=== PATIENT | female | born 1985 | race African-American/Black ===

== ENCOUNTER → 2017-06-11 | Outpatient (CLI) | payer MEDICAID ==
[2015-05-09 10:57] VITALS: BP 133/89
--- NOTE | 2017-06-11 10:04 | RAD ---
Examination: X-rays of the left knee. Clinical history: Chronic bilateral knee pain, no trauma. Technique: Two views of the left knee were obtained. Comparison: None available. Findings: No acute fracture, dislocation, or destructive bony lesion is noted. Small osteophytes are noted in the lateral and patellofemoral compartments of the knee, consistent wi th osteoarthritic changes. No joint effusion or soft tissue abnormality is noted. Impression: 1. No acute fracture or dislocation. 2. Arthropathy, as described above. Reported By:
--- NOTE | 2017-06-11 10:08 | RAD ---
Examination: X-rays of the right knee. Clinical history: Chronic bilateral knee pain, no trauma. Technique: Two views of the right knee were obtained. Comparison: 05/01/2015. Findings: No acute fracture, dislocation, or destructive bony lesion is noted. No arthropathy is appreciated. Bony spurring is seen at the anterosuperior aspect of the patella, consistent with enthesopathy. No soft tissue abnormality is noted. Impression: 1. No acute fracture or dislocation. Reported By:
== END ==
LOC: RAD 09:27
PROVIDERS: ATTEND Internal Medicine
DX: M17.11 Unilateral primary osteoarthritis, right knee (principal)
CPT/HCPCS: 73560

== ENCOUNTER → 2017-06-20 | Outpatient (CLI) | payer MEDICAID ==
[2015-05-09 10:57] VITALS: BP 133/89
--- NOTE | 2017-06-20 11:00 | CT ---
HISTORY: Chronic low back pain Study: CT lumbar spine without contrast Comparison: None Technique: Axial noncontrast images with coronal and sagittal reformats. Dose reduction procedures we re used with mA/kv adjusted for body size. Resolution is limited due to the patient's body habitus. Findings: The alignment is normal. The vertebral bodies are of average height. The disc heights are preserved. The pedicles, spinous processes, and posterior elements are intact. The sacrum and SI joints are norm al. There is no definite evidence for compressive disc disease at any level however it should be note d that due to the decreased resolution caused by the patient's body habitus a subtle disc abnormality might not be detectable. If disc disease is suspected MRI is recommended for further evaluation. The joints are normal. IMPRESSION: No significant abnormality identified within the limitations noted above. If lumbar disc disease is a clinical consideration MRI should be considered for further evaluation. Reported By:
== END ==
LOC: RAD 10:27
PROVIDERS: ATTEND Nurse Practitioner Family
DX: M51.36 Other intervertebral disc degeneration, lumbar region (principal)
CPT/HCPCS: 72131

== ENCOUNTER 2018-01-07 13:32 | Observation (INO) ==
--- NOTE | 2018-01-07 13:59 | ED.ABDFE ---
HPI Time Seen Time Seen by Provider: 01/07/18 13:52 PCP Primary Care Physician: dar terrell Complaint Doctors Chief Complaint Comments: Patient presents with complaint of stomach pain due to her gallbladder which was diagnosed 01/04/18 (cholelithiasis w/o cholecystitis) She admits to vomiting four days ago.. Chief Complaint:: pt has been in the er several times for abd pain and has been dx with gallstones. dr nunez was going to admit 3 days ago and pt refused. patient stated she had to have some relief from her pain today. Source History Provided: Patient and Parent Mode of arrival Mode of Arrival: Ambulatory Timing Onset of Chief Complaint: 01/02/18 PMH PMH Past Medical History: Yes Past Medical History: Arthritis, Diabetes and Hypertension Past Surgical History: Yes Surgical History: Family History History of Family Medical Conditions: Yes Family Medical History: Diabetes Mellitus, Cancer and Hypertension Social History Does patient currently use any type of tobacco product: No Have you used tobacco products in the last 12 months: No Type of Tobacco Use: None Does any household member use tobacco: No Alcohol Use: None Do you use any recreational Drugs:: No Lives With: Family Lives Where: Home infectious screening In the last 2 months have you had wt loss of >10#?: NO Have you had fever, night sweats or hemotysis?: No Have you traveled outside the country in the last 6 months?: No Isolation: Standard PE Vital Signs Vitals: Temperature 98.4 F Pulse Rate [Left Radial] 96 Pulse Rate 99 Respiratory Rate 24 Blood Pressure [Right Arm] 115/56 Blood Pressure [Left Arm] 161/99 Blood Pressure 132/104 O2 Sat by Pulse Oximetry 97 General General Appearance: Alert and In No Apparent Distress Head Head Exam: Normal Inspection, Atraumatic and Normocephalic Eyes Eye exam: Normal Appearance, PERRL and EOMI ENT ENT Exam: Normal Exam and Normal Oropharynx Neck Neck Exam: Normal Inspection and Full ROM Chest Chest Inspection: Normal Inspection and Symmetric Chest Wall Rise Respiratory Respiratory Exam: Bilateral: Clear to Auscultation Cardiovascular Cardiovascular Exam: Regular Rate and Normal Rhythm Abdominal Exam Abdominal Exam: Normal Inspection, Normal Bowel Sounds and Soft Abdominal Tenderness: RUQ and LUQ Rectal Rectal Exam: Deferred Back Back Exam: Normal Inspection and Full ROM Extremeties Extremities Exam: Normal Inspection and Full ROM External Exam: Female: Deferred : Speculum Exam (Female): Deferred : Bimanual Exam (female): Deferred Neurologic Neurological Exam: Alert and Oriented X3 Psychiatric Psychiatric Exam: Normal Affect and Normal Mood Skin Skin Exam: Warm and Intact COURSE Consultation Called: 15:10 Consultation Comments: Dr. Richards agreed to admit for further evaluation ROR Labs Reviewed Laboratory Results Reviewed?: Yes Result Diagrams: 01/07/18 14:15 01/07/18 14:15 Laboratory: WBC 10.8 X10^3/uL (3.6-10.0) H 01/07/18 14:15 RBC 6.30 X10^6/uL (3.5-5.4) H 01/07/18 14:15 Hgb 16.3 g/dL (12.0-16.0) H 01/07/18 14:15 Hct 48.5 % (36.0-47.0) H 01/07/18 14:15 MCV 76.9 fL (80.0-100.0) L 01/07/18 14:15 MCH 25.8 pg (27.0-34.0) L 01/07/18 14:15 MCHC 33.6 g/dL (33.0-35.0) 01/07/18 14:15 RDW 15.1 % (11.6-16.5) 01/07/18 14:15 Plt Count 383 X10^3/uL (150.0-450.0) 01/07/18 14:15 Plt Count Comment Adequate (ADEQUATE) 01/07/18 14:15 MPV 7.5 fL (7.4-11.0) 01/07/18 14:15 Neut % (Auto) 76.9 % (42.0-75.0) H 01/07/18 14:15 Lymph % (Auto) 15.3 % (21.0-51.0) L 01/07/18 14:15 [place] % (Auto) 6.6 % (0.0-13.0) 01/07/18 14:15 Eos % (Auto) 0.8 % (0.9-2.9) L 01/07/18 14:15 Baso % (Auto) 0.4 % (0.2-1.0) 01/07/18 14:15 Neut # (Auto) 8.3 x10^3/uL (2.2-4.8) H 01/07/18 14:15 Lymph # (Auto) 1.6 X10^3/uL (1.3-2.9) 01/07/18 14:15 [place] # (Auto) 0.7 x10^3/uL (0.3-0.8) 01/07/18 14:15 Eos # (Auto) 0.1 x10^3/uL (0.0-0.2) 01/07/18 14:15 Baso # (Auto) 0.0 X10^3/uL (0.0-0.1) 01/07/18 14:15 Absolute Nucleated RBC 0.0 /100WBC 01/07/18 14:15 Plt Morphology Comment Normal (NORMAL) 01/07/18 14:15 RBC Morphology Abnormal (NORMAL) A 01/07/18 14:15 Hypochromasia Slight A 01/07/18 14:15 Microcytosis Slight A 01/07/18 14:15 Sodium 129 mmol/L (136-145) L 01/07/18 14:15 Corrected Sodium 133 mmol/L (136-145) L 01/07/18 14:15 Potassium 4.1 mmol/L (3.5-5.1) 01/07/18 14:15 Chloride 93 mmol/L (98-107) L 01/07/18 14:15 Carbon Dioxide 19.9 mmol/L (21-32) L 01/07/18 14:15 BUN 15 mg/dL (7-18) 01/07/18 14:15 Creatinine 0.73 mg/dL (0.55-1.02) 01/07/18 14:15 Est GFR (MDRD) Af Amer > 60 (>60) 01/07/18 14:15 Est GFR (MDRD) Non-Af > 60 (>60) 01/07/18 14:15 Glucose 283 mg/dL (65-99) H 01/07/18 14:15 POC Glucose (mg/dL) 241 mg/dL (65-99) H 01/07/18 20:31 Calcium 9.2 mg/dL (8.5-10.1) 01/07/18 14:15 Corrected Calcium TNP 01/07/18 14:15 Total Bilirubin 1.40 mg/dL (0.2-1.0) H 01/07/18 14:15 AST 38 Units/L (15-37) H 01/07/18 14:15 ALT 154 Units/L (12-78) H 01/07/18 14:15 Alkaline Phosphatase 264 Units/L (46-116) H 01/07/18 14:15 C-Reactive Protein 16.00 mg/L (0-3.0) H 01/07/18 14:15 Total Protein 8.8 g/dL (6.4-8.2) H 01/07/18 14:15 Albumin 3.5 g/dL (3.4-5.0) 01/07/18 14:15 Globulin 5.3 g/dL (2.5-4.5) H 01/07/18 14:15 Albumin/Globulin Ratio 0.7 Ratio (1.1-2.1) L 01/07/18 14:15 Specimen Type Clean catch urine 01/07/18 23:41 Urine Color Dark yellow (YELLOW) 01/07/18 23:41 Urine Appearance Slightly hazy (CLEAR) 01/07/18 23:41 Urine pH 5.0 (5.0 - 8.0) 01/07/18 23:41 Ur Specific [place] 1.025 (1.000-1.030) 01/07/18 23:41 Urine Protein 2+ (NEGATIVE) 01/07/18 23:41 Urine Glucose (UA) 4+ (NEGATIVE) 01/07/18 23:41 Urine Ketones 4+ (NEGATIVE) 01/07/18 23:41 Urine Occult Blood 1+ (NEGATIVE) 01/07/18 23:41 Urine Nitrite Negative (NEGATIVE) 01/07/18 23:41 Urine Bilirubin Negative (NEGATIVE) 01/07/18 23:41 Urine Urobilinogen Normal (NORMAL) 01/07/18 23:41 Ur Leukocyte Esterase 1+ (NEGATIVE) 01/07/18 23:41 Urine RBC 5-10 /HPF (NONE SEEN) 01/07/18 23:41 Urine WBC 0-2 /HPF (NONE SEEN) 01/07/18 23:41 Ur Squamous Epith Cells Many /HPF (NEGATIVE) 01/07/18 23:41 Urine Bacteria 2+ /HPF (NEGATIVE) 01/07/18 23:41 Hyaline Casts Moderate /LPF (NEGATIVE) 01/07/18 23:41 Urine Yeast Moderate /HPF (NEGATIVE) 01/07/18 23:41 Ur Culture Indicated? No/not indicated 01/07/18 23:41 Procedures Procedure Comments Procedures: NS at maintance Diagnosis Discharge Problem: Cholelithiasis
[2018-01-07 14:27] LABS: BASOPHILS % (AUTO) 0.4 % (0.2-1.0); EOSINOPHILS # (AUTO) 0.1 x10^3/uL (0.0-0.2); EOSINOPHILS % (AUTO) 0.8 % (0.9-2.9); HEMATOCRIT 48.5 % (36.0-47.0); HEMOGLOBIN 16.3 g/dL (12.0-16.0); LYMPHOCYTES # (AUTO) 1.6 X10^3/uL (1.3-2.9); LYMPHOCYTES % (AUTO) 15.3 % (21.0-51.0); MEAN CORPUSCULAR HEMOGLOBIN 25.8 pg (27.0-34.0); MEAN CORPUSCULAR HGB CONC 33.6 g/dL (33.0-35.0); MEAN CORPUSCULAR VOLUME 76.9 fL (80.0-100.0); MEAN PLATELET VOLUME 7.5 fL (7.4-11.0); MONOCYTES # (AUTO) 0.7 x10^3/uL (0.3-0.8); MONOCYTES % (AUTO) 6.6 % (0.0-13.0); NEUTROPHILS # (AUTO) 8.3 x10^3/uL (2.2-4.8); NEUTROPHILS % (AUTO) 76.9 % (42.0-75.0); PLATELET COUNT 383 X10^3/uL (150.0-450.0); RED CELL DISTRIBUTION WIDTH 15.1 % (11.6-16.5); WHITE BLOOD COUNT 10.8 X10^3/uL (3.6-10.0)
[2018-01-07 14:34] LABS: HYPOCHROMASIA SLIGHT; MICROCYTOSIS SLIGHT; PLATELET MORPHOLOGY COMMENT NORMAL (NORMAL)
[2018-01-07] MEDS ORDERED: CATAPRES TAB 0.1 MG PO ONE (14:49)
[2018-01-07 15:22] LABS: ALANINE AMINOTRANSFERASE 154 Units/L (12-78); ALBUMIN 3.5 g/dL (3.4-5.0); ALKALINE PHOSPHATASE 264 Units/L (46-116); ASPARTATE AMINO TRANSFERASE 38 Units/L (15-37); BLOOD UREA NITROGEN 15 mg/dL (7-18); CALCIUM 9.2 mg/dL (8.5-10.1); CARBON DIOXIDE 19.9 mmol/L (21-32); CHLORIDE 93 mmol/L (98-107); COR NA(FOR HYPERGLY) 133 mmol/L (136-145); CREATININE 0.73 mg/dL (0.55-1.02); SODIUM 129 mmol/L (136-145); TOTAL PROTEIN 8.8 g/dL (6.4-8.2); eGFR NON BLACK RACES > 60 (>60)
[2018-01-07] MEDS ORDERED: MORPHINE SULFATE INJ 4 MG IVP PRN (15:34)
[2018-01-07] MEDS ORDERED: ZOFRAN INJ 4 MG VIAL IVP PRN (16:35)
[2018-01-07] MEDS ORDERED: ZESTRIL TAB 20 MG PO SCH (16:43)
[2018-01-07] MEDS ORDERED: LEVAQUIN PREMIX IV 500 MG 500 MG/100 ML BAG IV SCH (17:00)
[2018-01-07 17:33] VITALS: BMI 51.5
[2018-01-07] MEDS ORDERED: ZESTRIL TAB 20 MG ONE (18:38)
[2018-01-07] MEDS: PROTONIX INJ 40 MG VIAL IVP SCH (18:46)
[2018-01-07] MEDS: HumuLIN R SC PRN (20:35)
[2018-01-07] MEDS ORDERED: ANCEF VIAL 500 MG IVP SCH (22:00)
[2018-01-07 23:59] LABS: BILIRUBIN,URINE NEGATIVE (NEGATIVE); BLOOD/HEMOGLOBIN,URINE 1+ (NEGATIVE); GLUCOSE, URINE 4+ (NEGATIVE); KETONES,URINE 4+ (NEGATIVE); LEUKOCYTE ESTERASE ,URINE 1+ (NEGATIVE); NITRITES,URINE NEGATIVE (NEGATIVE); PROTEIN,URINE 2+ (NEGATIVE); UROBILINOGEN,URINE NORMAL (NORMAL)
[2018-01-08 00:11] LABS: APPEARANCE,URINE SLIGHTLY HAZY (CLEAR); COLOR,URINE DARK YELLOW (YELLOW)
[2018-01-08 00:12] LABS: BACTERIA,URINE 2+ /HPF (NEGATIVE); HYALINE CASTS, URINE MODERATE /LPF (NEGATIVE); SQUAMOUS EPITHELIAL CELL,UR MANY /HPF (NEGATIVE); YEAST,URINE MODERATE /HPF (NEGATIVE)
[2018-01-08] MEDS: NS 1000 ML 1,000 ML IV SCH ×2 (01:00→15:20)
[2018-01-08] MEDS: HumuLIN R SC PRN ×3 (05:58→17:00)
[2018-01-08 06:08] LABS: BASOPHILS # (AUTO) 0.1 X10^3/uL (0.0-0.1); BASOPHILS % (AUTO) 0.7 % (0.2-1.0); EOSINOPHILS # (AUTO) 0.1 x10^3/uL (0.0-0.2); HEMATOCRIT 41.4 % (36.0-47.0); LYMPHOCYTES % (AUTO) 19.1 % (21.0-51.0); MEAN CORPUSCULAR HEMOGLOBIN 25.9 pg (27.0-34.0); MEAN CORPUSCULAR HGB CONC 33.7 g/dL (33.0-35.0); MEAN PLATELET VOLUME 7.7 fL (7.4-11.0); MONOCYTES # (AUTO) 1.1 x10^3/uL (0.3-0.8); MONOCYTES % (AUTO) 10.1 % (0.0-13.0); NEUTROPHILS # (AUTO) 7.3 x10^3/uL (2.2-4.8); NEUTROPHILS % (AUTO) 69.1 % (42.0-75.0); PLATELET COUNT 320 X10^3/uL (150.0-450.0); RED BLOOD COUNT 5.37 X10^6/uL (3.5-5.4); RED CELL DISTRIBUTION WIDTH 15.1 % (11.6-16.5); WHITE BLOOD COUNT 10.5 X10^3/uL (3.6-10.0)
[2018-01-08 06:19] LABS: ALANINE AMINOTRANSFERASE 103 Units/L (12-78); ALBUMIN 2.8 g/dL (3.4-5.0); ALKALINE PHOSPHATASE 201 Units/L (46-116); ASPARTATE AMINO TRANSFERASE 22 Units/L (15-37); BLOOD UREA NITROGEN 22 mg/dL (7-18); CALCIUM 8.4 mg/dL (8.5-10.1); CARBON DIOXIDE 17.6 mmol/L (21-32); CHLORIDE 97 mmol/L (98-107); COR CA(FOR HYPOALB) 9.4 mg/dL (8.5-10.1); COR NA(FOR HYPERGLY) 134 mmol/L (136-145); CREATININE 1.14 mg/dL (0.55-1.02); SODIUM 129 mmol/L (136-145); TOTAL PROTEIN 7.1 g/dL (6.4-8.2); eGFR NON BLACK RACES 59 (>60)
[2018-01-08 06:31] LABS: HEMOGLOBIN 13.9 g/dL (12.0-16.0)
[2018-01-08] MEDS ORDERED: POTASSIUM CHLORIDE LIQ 20 MEQ UDC PO PRN (06:40)
[2018-01-08] MEDS ORDERED: POTASSIUM CHL 60 MEQ/NS 0.45% 500 ML IV PRN (06:40)
[2018-01-08] MEDS ORDERED: KLOR-CON PO PRN (06:40)
[2018-01-08] MEDS ORDERED: K-RIDER 10 MEQ/NS 100 ML 10 MEQ/100 ML BAG IV PRN (06:40)
[2018-01-08] MEDS ORDERED: K-DUR TAB 20 MEQ PO PRN (06:40)
[2018-01-08] MEDS ORDERED: MICRO K EXTEN CAP 10 MEQ PO PRN (06:40)
[2018-01-08] MEDS ORDERED: POTASSIUM CHL 40 MEQ/NS 0.45% 500 ML IV PRN (06:40)
[2018-01-08 06:49] LABS: HYPOCHROMASIA SLIGHT; PLATELET MORPHOLOGY COMMENT NORMAL (NORMAL)
[2018-01-08] MEDS ORDERED: LR 1000 ML IV 1,000 ML IV ONE (08:25)
[2018-01-08] MEDS ORDERED: ANCEF VIAL 1 GRAM ONE (08:26)
[2018-01-08] MEDS ORDERED: GLUCOPHAGE PO SCH (09:00)
[2018-01-08 09:04] LABS: SERUM PREGNANCY TEST, QUAL NEGATIVE <10 mIU/mL
[2018-01-08] MEDS ORDERED: FENTANYL INJ 250 mcg ONE (09:06)
[2018-01-08] MEDS ORDERED: HumuLIN R ONE ×2 (09:10→11:28)
[2018-01-08] MEDS ORDERED: NS 1000 ML 1,000 ML ONE (09:42)
[2018-01-08] MEDS ORDERED: DILAUDID INJ ONE ×2 (09:45→11:09)
[2018-01-08] MEDS ORDERED: FENTANYL INJ 100 mcg ONE (09:45)
[2018-01-08] MEDS ORDERED: XYLOCAINE 2% ONE (09:46)
[2018-01-08] MEDS ORDERED: DIPRIVAN VIAL ONE (09:46)
[2018-01-08] MEDS ORDERED: NEOSTIGMINE INJ ONE (09:46)
[2018-01-08] MEDS ORDERED: ZOFRAN INJ 4 MG VIAL ONE (09:46)
[2018-01-08] MEDS ORDERED: NORCURON INJ 10 MG VIAL ONE (09:46)
[2018-01-08] MEDS ORDERED: ROBINUL ONE (09:46)
[2018-01-08] MEDS ORDERED: QUELICIN (OR ANECTINE) ONE (09:46)
[2018-01-08] MEDS ORDERED: SUPRANE IN ONE (09:46)
[2018-01-08] MEDS ORDERED: VERSED ONE (09:46)
[2018-01-08] MEDS ORDERED: GLUCOPHAGE ONE (09:47)
[2018-01-08] MEDS ORDERED: ZESTRIL TAB 20 MG ONE (09:48)
[2018-01-08] MEDS ORDERED: NS IRRIGATION 3000 ML ONE ×2 (09:57→10:00)
[2018-01-08] MEDS ORDERED: ZOFRAN INJ 4 MG VIAL IVP PRN (11:26)
[2018-01-08] MEDS ORDERED: PHENERGAN INJ 25 MG IVP PRN (11:26)
[2018-01-08] MEDS ORDERED: REGLAN INJ 10 MG VIAL IVP PRN (11:26)
[2018-01-08] MEDS ORDERED: BENADRYL INJ 50 MG VIAL IVP PRN (11:26)
[2018-01-08] MEDS: DILAUDID INJ IVP PRN ×2 (11:40→11:45)
[2018-01-08] MEDS: PROTONIX INJ 40 MG VIAL IVP SCH (12:09)
[2018-01-08] MEDS ORDERED: NORCO 5/325 MG TAB PO PRN (12:40)
[2018-01-08 17:21] VITALS: BP 118/58
--- NOTE | 2018-01-22 21:50 | DR.CARTERS ---
Short Stay Summary - Short Stay Summary for: Short Stay Summary for Date of:: 01/07/18 - Admission Date Date of Admission: 01/07/18 - Discharge Date Discharge Date: 01/08/18 - Admission Diagnoses (1) Diabetes mellitus Status: Acute (2) Abdominal pain Status: Acute (3) Cholelithiasis Status: Acute - Hospital Course Hospital Course: 32YO female Patient presented to ED with complaint of stomach pain due to her gallbladder which was diagnosed 01/04/18 (cholelithiasis w/o cholecystitis) She admits to vomiting four days ago.The patient had been in the ED several times for abd pain. Dr Ivy was going to admit 3 days ago and pt refused. Patient admitted for further evaluation. Surgery consulted and patient underwent lap cholecystectomy. Patient had labs including blood glucose checked. Symptoms improved and patient discharged home to be followed in OP setting. - Discharge Medications Discharge Medications: Home Medication List hydrocodone-acetaminophen [[place]] 1 tab PO Q4H PRN #20 tab 01/08/18 [Rx] ondansetron HCl [Zofran] 4 mg PO Q6HR PRN #20 tab 01/08/18 [Rx] Prescriptions: ondansetron HCl [Zofran] LEELEE LEWIS hydrocodone-acetaminophen [[place]] LEELEE LEWIS - Discharge Plan Disposition: 01 HOME, SELF-CARE Condition: Stable Prescriptions: ondansetron HCl [Zofran] 4 mg PO Q6HR PRN #20 tab PRN Reason: Nausea hydrocodone-acetaminophen [[place]] 1 tab PO Q4H PRN #20 tab PRN Reason: Pain - Follow up/Referrals Follow up/Referrals: RAYMOND HILLIARD [Primary Care Provider] - 01/15/18 9:45 am LEELEE LEWIS [STAFF PHYSICIAN] - 01/20/18 9:10 am - Instructions Instructions: Type 2 Diabetes Mellitus, Diagnosis, Adult, Laparoscopic Cholecystectomy, Care After, Dumping Syndrome Diet, Hypertension, [id number], Pain Medicine Instructions, [id number], Dumping Syndrome, [place] Diet Additional Instructions: POST OPERATIVE INSTRUCTIONS: (1) A RESPONSIBLE ADULT SHOULD REMAIN WITH YOU TODAY, YOU SHOULD BE ASSISTED TO THE BATHROOM FOR 6-8 HOURS. REST QUIETLY THE REMAINDER OF THE DAY. (2) DEEP BREATHING AND COUGHING EXERCISES FOR THE NEXT 6-8 HOURS. (3)SMOKE ONLY IF SOMEONE IS WITH YOU FOR THE NEXT 12 HOURS. (4) DIET TOLERATED (5) DO NOT DRIVE YOUR AUTOMOBILE OR OPERATE MACHINERY FOR 12-18 HOURS AFTER RECEIVING A GENERAL ANESTHETIC OR WHILE TAKING NARCOTIC PAIN MEDICATION. (6) SOME ANESTHETIC AGENTS AND MEDICATION TAKEN FOR PAIN MAY CAUSE NAUSEA. IF NAUSEA PERSISTS FOR SEVERAL HOURS AT HOME, CALL YOUR DOCTOR. (7) OBSERVE AFFECTED AREA FOR CIRCULATION, CHANGE OF COLOR, NUMBNESS OR TINGLING, COLDNESS, INCREASED PAIN. (8) OBSERVE OPERATIVE AREA FOR SIGNS OF INFECTION: REDNESS, SWELLING, FOUL ODOR, DRAINAGE, AND NOTIFY FOR ANY CONCERNS OR FEVER OVER 101.0. (9) KEEP OPERATIVE AREA CLEAN AND DRY. DO NOT REMOVE DRESSING UNLESS INSTRUCTED TO DO SO BY YOUR DOCTOR. (10) RESUME ALL PREVIOUS MEDICATIONS PRESCRIBED BY YOUR DOCTOR. (11) TAKE PAIN MEDICATIONS PRESCRIBED. (12) NO LIFTING OVER 10LBS. . Forms: Patient Portal
== END 2018-01-08 17:15 | disposition home or self-care (01) ==
LOC: ICU 13:32 → ER 13:32 → ICU 15:20
PROVIDERS: ADMIT Internal Medicine; ATTEND Internal Medicine
CPT/HCPCS: 36415; 80053; 81001; 83735; 84703; 85025; 86140; 96365; 96367; 96372; 96374; 99282; 99284; A4222; C9113; G0378; J0330; J0690; J1170; J1815; J1956; J2250; J2270; J2405; J2704; J2710; J3010; J3490; J7030; J7120